=== PATIENT | male | born 1965 | race American Indian/Alaskan Native ===

== ENCOUNTER 2018-04-11 11:35 | Emergency (ER) | payer BC, OTHER ==
[~2018-04-11] VITALS: Ht 188 cm; Wt 190.5 kg
[~2018-04-11 11:35] MED LIST: ASPIRIN325 MG PO; CRESTOR5 MG PO; DICLOFENAC SODI75 MG PO; DILTIAZEM 24HR240 MG PO; HYDROCHLOROTHIA25 MG PO; KLOR-CON 1010 MEQ PO; LOSARTAN POTAS100 MG PO; ZOLPIDEM TARTRA10 MG PO
[2018-04-11] MEDS ORDERED: IBU800 MG PO (12:55)
== END 2018-04-11 13:05 | disposition home or self-care (01) ==
LOC: ED 11:35
DX: I80.02 Phlebitis and thrombophlebitis of superficial vessels of left lower extremity (principal); I10 Essential (primary) hypertension; Z79.899 Other long term (current) drug therapy; Z79.82 Long term (current) use of aspirin
CPT/HCPCS: 93971; 99284

== ENCOUNTER 2019-08-15 14:59 | Emergency (ER) | payer BC, OTHER ==
[~2019-08-15] VITALS: Ht 188 cm; Wt 181.4 kg
--- OUTSIDE RECORDS SUMMARY | ~2019-08-15 | XMS | Clinical Summary ---
Demographics + + + | Address | [address] | | | [place] [address] | + + + | Home Phone | | + + + | Preferred Language | Unknown | + + + | Marital Status | | + + + | Jainism Affiliation | Unknown | + + + | Race | Unknown | + + + | Ethnic Group | Unknown | + + + Author + + + | Author | [facility] | | | and [place] | + + + | Organization | [facility] | | | and [place] | + + + | Address | Unknown | + + + | Phone | Unavailable | + + + Support + + + + + | Name | Relationship | Address | Phone | + + + + + | Waqas,Christa | ECON | [place] | | | | | [phone] | | + + + + + Care Team Providers + +------+ + | Care Academic Support Director Name | Role | Phone | + +------+ + | Eric Paul PA-C | PCP | Unavailable | + +------+ + Allergies No Known Allergies Medications + + + +---------+------+------+-------+ | Medication | Sig | Dispensed | Refills | Star | End | Statu | | | | | | t | Date | s | | | | | | Date | | | + + + +---------+------+------+-------+ | aspirin 325 mg | Take 325 mg by mouth | | 0 | | | Activ | | tablet | Daily. | | | | | e | + + + +---------+------+------+-------+ | | Take 25 mg by mouth | | 0 | | | Activ | | hydrochlorothiazide | Daily. | | | | | e | | 25 mg tablet | | | | | | | + + + +---------+------+------+-------+ | ibuprofen | Take 800 mg by mouth | | 0 | | | Activ | | (ADVIL,MOTRIN) 800 | every 6 hours as | | | | | e | | MG tablet | needed. | | | | | | + + + +---------+------+------+-------+ | naproxen | Take 500 mg by mouth | | 0 | | | Activ | | (NAPROSYN) 500 mg | 2 times daily (with | | | | | e | | tablet | breakfast & | | | | | | | | dinner). | | | | | | + + + +---------+------+------+-------+ | omeprazole | Take 20 mg by mouth | | 0 | | | Activ | | (PRILOSEC) 20 mg | every morning | | | | | e | | capsule | (before breakfast). | | | | | | + + + +---------+------+------+-------+ | UNCODED | Wear while sleeping. | 1 | 0 | 04/2 | | Activ | | MEDICATIONIndication | | Device | | 20 | | e | | s: XIMENA (obstructive | | | | 13 | | | | sleep apnea) | | | | | | | + + + +---------+------+------+-------+ | dilTIAZem (TIAZAC) | Take 180 mg by mouth | | 0 | 01/0 | | Activ | | 180 MG 24 hr | 2 times daily. | | | 20 | | e | | capsule | | | | 18 | | | + + + +---------+------+------+-------+ | losartan (COZAAR) | Take 100 mg by mouth | | 0 | 01/0 | | Activ | | 100 MG tablet | Daily. | | | 420 | | e | | | | | | 18 | | | + + + +---------+------+------+-------+ | KLOR-CON 10 MEQ CR | Take 10 mEq by mouth | | 0 | 01/0 | | Activ | | tablet | 2 times daily. | | | 420 | | e | | | | | | 18 | | | + + + +---------+------+------+-------+ | rosuvastatin | Take 5 mg by mouth | | 0 | 01/0 | | Activ | | (CRESTOR) 5 MG | nightly. | | | 420 | | e | | tablet | | | | 18 | | | + + + +---------+------+------+-------+ | zolpidem (AMBIEN) | Take 10 mg by mouth | | 0 | 01/0 | | Activ | | 10 mg tablet | nightly as needed. | | | 820 | | e | | | | | | 18 | | | + + + +---------+------+------+-------+ | | Take 1-2 tablets by | 40 | 0 | 03/2 | | Activ | | HYDROcodone-acetamin | mouth EVERY 4 TO 6 | tablet | | 0/20 | | e | | ophen (NORCO) 5-325 | HOURS NEEDED for | | | 18 | | | | mg per tablet | Pain. | | | | | | + + + +---------+------+------+-------+ Active Problems + + + | Problem | Noted Date | + + + | XIMENA (obstructive sleep apnea) | | + + + | Obesity | | + + + | HBP (high blood pressure) | | + + + | Chronic pain | | + + + + + | Overview: Shoulder pain | + + Family History + + +------+ + | Medical History | Relation | Name | Comments | + + +------+ + | Heart disease | Mother | | | + + +------+ + | Other (see comment) | Mother | | XIMENA on CPAP | + + +------+ + + +------+--------+ + | Relation | Name | Status | Comments | + +------+--------+ + | Brother | | Alive | | + +------+--------+ + | Father | | Alive | | + +------+--------+ + | Mother | | Alive | | + +------+--------+ + | Sister | | Alive | | + +------+--------+ + | Son | | Alive | | + +------+--------+ + | Son | | Alive | | + +------+--------+ + | Son | | Alive | | + +------+--------+ + Social History + +-------+ +--------+------+ | Tobacco Use | Types | Packs/Day | Years | Date | | | | | Used | | + +-------+ +--------+------+ | Never Smoker | | | | | + +-------+ +--------+------+ + +---+---+---+ | Smokeless Tobacco: | | | | | Never Used | | | | + +---+---+---+ + + +---------+ + | Alcohol Use | Drinks/We | oz/Week | Comments | | | ek | | | + + +---------+ + | Yes | | | Rare | + + +---------+ + + + + | Sex Assigned at | Date Recorded | | | | + + + | Not on file | | + + + + + + + | Job Start Date | Occupation | Industry | + + + + | Not on file | Not on file | Not on file | + + + + + + + + | Travel History | Travel Start | Travel End | + + + + + + | No recent travel history available. | + + Last Filed Vital Signs + + + + | Vital Sign | Reading | Time Taken | + + + + | Blood Pressure | 130/80 | 09/01/20182 PDT | + + + + | Pulse | 78 | 09/01/2018 1322 PDT | + + + + | Temperature | 37.1 C (98.8 F) | 01/18/20188 PDT | + + + + | Respiratory Rate | 20 | 09/01/20181321 PDT | + + + + | Oxygen Saturation | 97% | 09/01/20181321 PDT | + + + + | Inhaled Oxygen | - | - | | Concentration | | | + + + + | Weight | 194 kg (427 lb 11.1 | 09/01/20181321 PDT | | | oz) | | + + + + | Height | 188 cm (6' 2") | 02/24/20188 PDT | + + + + | Body Mass Index | 54.91 | 02/24/2018 1628 PDT | + + + + Plan of Treatment +--------+---------+ + + + | Date | Type | Specialty | Care Team | Description | +--------+---------+ + + + | 09/07/ | Office | Sleep Medicine | Drew Bryant PA | | | 2019 | Visit | | [address] | | | | | | [place] | | | | | | [address] | | | | | | | | +--------+---------+ + + + + + + + + | Health Maintenance | Due Date | Last Done | Comments | + + + + + | Hepatitis C | | | | | Screening | 5 | | | + + + + + | Vaccine: | | | | | Dtap/Tdap/Td (1 - | 4 | | | | Tdap) | | | | + + + + + | Colorectal Cancer | | | | | Screening | 5 | | | | (Colonoscopy) | | | | + + + + + | Vaccine: Zoster (1 | | | | | of 2) | 5 | | | + + + + + | Vaccine: Influenza | | | | | (#1) | 9 | | | + + + + + Results Not on filefrom Last 3 Months Insurance + +--------+ +--------+-------+---------+--------+ | Payer | Benefi | Subscriber | Effect | Phone | Address | Type | | | t Plan | ID | qi | | | | | | / | | Dates | | | | | | Group | | | | | | + +--------+ +--------+-------+---------+--------+ | BCBS | BCBS | [id number] | 11/01/19 | | | PPO | | | [place] | | 16-Pre | | | | | | L FEP | | sent | | | | + +--------+ +--------+-------+---------+--------+ | [employer] | IHS | [id number] | | | | Indemn | | SERVICE | YELLOW | | 013-Pr | | | ity | | | HAWK | | esent | | | | + +--------+ +--------+-------+---------+--------+ + +--------+ +--------+ + + | Guarantor Name | Accoun | Relation to | Date | Phone | Billing Address | | | t Type | Patient | of | | | | | | | | | | + +--------+ +--------+ + + | Sid Morin | Person | Self | [birth year] | [address] | | | al/Fam | | 1965 | [phone] | [address] [place] | | | [place] | | | 0 (Home) | [phone] | | | | | | [phone] | | | | | | | 4 (Work) | | + +--------+ +--------+ + + Advance Directives Patient has advance care planning documents, and code status on file. For more information, please contact:[facility] and [place] [address] + + + + + | Code Status | Date | Date | Comments | | | Activated | Inactivated | | + + + + + | Full Code | 01/18/2018 | 01/18/2018 | | | | 14:52 | 17:14 | | + + + + +
--- OUTSIDE RECORDS SUMMARY | ~2019-08-15 | XMS | Clinical Summary ---
Demographics + + + | Address | [address] | | | [place] [address] | + + + | Home Phone | | + + + | Preferred Language | Unknown | + + + | Marital Status | | + + + | Uatsdin Affiliation | Unknown | + + + | Race | Unknown | + + + | Ethnic Group | Unknown | + + + Author + + + | Author | [facility] | | | and [place] | + + + | Organization | [facility] | | | and [place] | + + + | Address | Unknown | + + + | Phone | Unavailable | + + + Support + + + + + | Name | Relationship | Address | Phone | + + + + + | Waqas,Christa | ECON | [place] | | | | | [address] | | + + + + + Care Team Providers + +------+ + | Care Home Inspector Name | Role | Phone | + [...] [place] | | | | | | [phone] | | | | | | | [...] +--------+ +--------+-------+---------+--------+ | BCBS | BCBS | [id number] | 11/01/19 | | | PPO | | | [place]ERA | | 16-Pre | | | | | | L FEP | | sent | | | | + +--------+ +--------+-------+---------+--------+ | [employer] | IHS | [id number] | | | | Indemn | | [...] Person | Self | [birth year] | [address] | | | al/Fam | | 1965 | [phone] | loop [place] | | | [place] | | | 0 (Home) | [phone] | | | | | | [phone] | | | | | | | 4 (Work) | | + +--------+ +--------+ + + Advance Directives Patient has advance care planning documents, and code status on file. For more information, please contact:[facility] [place] [address] + + + + + | Code Status | Date | Date | Comments | | | Activated | Inactivated | | + + + + + | Full Code | 01/18/2018 | 01/18/2018 | | | | 14:52 | 17:14 | | + + + + +
[~2019-08-15 14:59] MED LIST changes: +IBU800 MG PO
--- OUTSIDE RECORDS SUMMARY | 2019-08-15 15:02 | XMS ---
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 ESonya VISIT COUNT (12 MO.) 1 STEPHANIE El TOTAL 1 NOTE: Visits indicate total known visits. ED/UCC VISIT TRACKING (12 MO.) 08/15/2019 15:00 STE[facility]IE [facility] [place] TYPE: Emergency COMPLAINT: - BACK AND SHOULDER PAIN INPATIENT VISIT TRACKING (12 MO.) No inpatient visits to display in this time frame [id number]
[2019-08-15] MEDS ORDERED: NORCO 7.5-3251 EACH PO (15:10)
[2019-08-15] MEDS ORDERED: PREDNISONE10 MG PO (15:11)
[2019-08-15] MEDS ORDERED: CYCLOBENZAPRINE10 MG PO (15:11)
[2019-08-15] MEDS ORDERED: ULTRAM50 MG PO (15:11)
[2019-08-15] MEDS ORDERED: PERCOCET 5-3251 EACH PO (18:25)
== END 2019-08-15 18:44 | disposition home or self-care (01) ==
LOC: ED 14:59
DX: M48.02 Spinal stenosis, cervical region (principal); M54.12 Radiculopathy, cervical region; I10 Essential (primary) hypertension; Z86.73 Personal history of transient ischemic attack (TIA), and cerebral infarction without residual deficits; Z88.8 Allergy status to other drugs, medicaments and biological substances; Z79.52 Long term (current) use of systemic steroids; Z79.82 Long term (current) use of aspirin; Z79.899 Other long term (current) drug therapy
CPT/HCPCS: 72125; 96372; 99283-25; J1100; J1170

== ENCOUNTER 2020-03-27 07:50 | Day surgery (SDC) | payer BC, OTHER ==
[~2020-03-27] VITALS: Ht 188 cm; Wt 195.0 kg
[~2020-03-27 07:50] MED LIST changes: +CELEBREX200 MG PO; +CYCLOBENZAPRINE10 MG PO; +NORCO 7.5-3251 EACH PO; +PERCOCET 5-3251 EACH PO; +PREDNISONE10 MG PO; +ST. JOSEPH ASPI81 MG PO; +ULTRAM50 MG PO; +VITAMIN D3125 MC1 PO
--- NOTE | 2020-03-27 08:27 | NUR ---
PT ALERT, ORIENTED AND SITTING IN CHAIR. PT SEEMS AT EASE, VIEWS CYST ON HIS FINGER MORE AN ANNOYANCE, AND SEEMS READY TO HAVE IT TAKEN CARE OF. PT HAD FEW QUESTIONS-ASKED AND ANSWERED. PT DID REQUEST PRAYER
[2020-03-27] MEDS ORDERED: HYDROCODON-ACE1 EA10 PO (09:39)
--- NOTE | 2020-03-27 09:51 | OR ---
[facility] [address] [place], [place] [address] Signed DATE OF OPERATION: 03/27/2020 SURGEON: Bryant Soler MD PREOPERATIVE DIAGNOSIS: Left ring finger cyst, dorsal. POSTOPERATIVE DIAGNOSIS: Left ring finger cyst, dorsal. PROCEDURE PERFORMED: Excision of mass, left ring finger. MANAGER ASSISTED LIVING: None. ANESTHESIA: [place] block. TOURNIQUET TIME: 20 minutes. SPECIMENS: The cystic mass was sent to Pathology. BRIEF HISTORY: Sid is a 54-year-old gentleman with a history of a painful bump on the back of his left ring finger. This did not change in size, however, it was bothersome to him and he wished to have it removed. Risks and benefits of operative removal were discussed with him and he elected to proceed. DESCRIPTION OF PROCEDURE: Once consent was obtained, he was taken to the operating room. After establishment of Afsaneh block, the hand was prepped and draped in a standard sterile fashion. The cyst was easily identifiable. A 1 cm incision was made overlying this. It was immediately below the skin and deep blue in color. Initially, I thought it may be a venous aneurysm or blood clot; however, dissection around it showed it to be completely free of any attachment to surrounding vessels or tissue. It was easily removed. Due to it not being a typical epidermal inclusion cyst or foreign body cyst, I went ahead and sent it to Pathology. There were 2 small bleeders were then cauterized using the bipolar. Electronically Signed By: BRYANT SOLER MD 03/27/20 0951 PATIENT NAME: SID FOSTER OPERATIVE REPORT DATE OF : 65 REPORT #: [id number] PHYSICIAN: BRYANT SOLER MD PCP: INESSA COLEMAN REPORT IS CONFIDENTIAL AND NOT TO BE RELEASED WITHOUT AUTHORIZATION [facility] [address] [place], [place] [address] Signed Wound was copiously irrigated and closed using 3-0 nylon. We injected 5 mL of 0.25% plain Marcaine at the end of the procedure. The wound was dressed with bacitracin, Adaptic, 4 x 4 and gauze. He tolerated the procedure well. All sponge, needle, and instrument counts were correct. Bryant Soler MD BA/HERMESL /[id number] Copies: ~ Electronically Signed By: BRYANT SOLER MD 03/27/20 0951 PATIENT NAME: SID FOSTER OPERATIVE REPORT DATE OF : 65 REPORT #: [id number] PHYSICIAN: BRYANT SOLER MD PCP: INESSA COLEMAN REPORT IS CONFIDENTIAL AND NOT TO BE RELEASED WITHOUT AUTHORIZATION
--- NOTE | 2020-03-27 10:24 | NUR ---
03/27/20 1024 Irina Freedman 0966 PT ARRIVED IN PACU WIDE AWAKE WITH NO C/O'S. 0950 ICE TO L HAND AND ELEVATED. 1000 UP TO BATHROOM. VOIDED. BACK AT BEDSIDE GETTING DRESSED. 1012 DC INSTRUCTIONS GIVEN. ALL QUESTIONS ANSWERED. LEFT VIA W/C.
--- NOTE | 2020-03-29 14:04 | PATH ---
[facility] [address] [place], [place] [address] Signed SPECIMEN(S): A LEFT RING FINGER SPECIMEN SOURCE: A. 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 NAL:cml:C2NR MICROSCOPIC EXAMINATION: Histologic sections of all submitted blocks are examined by light microscopy. These findings, together with the gross examination, support the pathologic diagnosis. GROSS DESCRIPTION: The specimen, labeled "SB," and designated on the requisition "cyst, left ring finger," is received in formalin and consists of a dark riley/blue tissue nodule measuring 0.7 x 0.5 x 0.3 cm. The specimen is bisected revealing hemorrhagic cut surface and is entirely submitted in cassette A1. AT (under the direct supervision of a pathologist) The Gross Description was prepared using a voice recognition system. The report was reviewed for accuracy; however, sound-alike word errors, addition and/or deletions may occur. If there is any question about this report, please contact Client Services. PERFORMING LABORATORY: The technical component was performed by [facility], [address] [place] [address] (Machine Burrer: Halina Frias MD; CLIA# [id number]). [facility], [address] [address] (CLIA# [id number]). Diagnostician: Teresa Deleon MD Pathologist Electronically Signed 03/29/2020 PATIENT NAME: CARYL FOSTER PATHOLOGY DATE OF : 65 REPORT #: [id number] PHYSICIAN: RANI JAMES PCP: INESSA COLEMAN REPORT IS CONFIDENTIAL AND NOT TO BE RELEASED WITHOUT AUTHORIZATION [address] [address] Signed Copies: ~ PATIENT NAME: CARYL FOSTER PATHOLOGY DATE OF : 65 REPORT #: [id number] PHYSICIAN: RANI PATHOLOGY PCP: INESSA COLEMAN REPORT IS CONFIDENTIAL AND NOT TO BE RELEASED WITHOUT AUTHORIZATION
== END 2020-03-27 10:12 | disposition home or self-care (01) ==
LOC: OPS 07:50 → DS 07:50 → OPS 09:45
PROVIDERS: Specialist
PROC: 0JBK0ZZ Excision of Left Hand Subcutaneous Tissue and Fascia, Open Approach (ICD-10-PCS; principal; 2020-03-27 09:45)
DX: M67.442 Ganglion, left hand (principal); I10 Essential (primary) hypertension; K21.9 Gastro-esophageal reflux disease without esophagitis; Z79.899 Other long term (current) drug therapy
CPT/HCPCS: 01830; J0690; J2704

== ENCOUNTER 2021-01-03 10:39 | Observation (INO) | payer BC, OTHER ==
[~2021-01-03] VITALS: Ht 188 cm; Wt 199.6 kg
[~2021-01-03 10:39] MED LIST changes: -DILTIAZEM 24HR240 MG PO; +DILTIAZEM ER240 M1 PO; +HYDROCODON-ACE1 EA10 PO
[2021-01-03] MEDS ORDERED: VITAMIN C500 M5 PO (10:59)
[2021-01-03] MEDS ORDERED: GABAPENTIN300 MG PO (11:00)
[2021-01-03] MEDS ORDERED: ASPIRIN EC325 MG PO (14:37)
[2021-01-03] MEDS ORDERED: PROPRANOLOL HCL20 MG PO (14:50)
[2021-01-03] MEDS ORDERED: FLUTICASONE PRO16 GM NAS (14:50)
[2021-01-03] MEDS ORDERED: CLOTRIMAZOLE-BE15 GM TOP (14:51)
--- NOTE | 2021-01-03 15:13 | EKG ---
[facility] [address] [facility] [place], [place] [address] Signed Normal sinus rhythm Nonspecific ST abnormality Abnormal ECG When compared with ECG of 26-MAR-2020 14:30, ST now depressed in Anterior leads Confirmed by KACEY MEDINA MD ([id number]) on 01/03/2021 3:12:49 PM Electronically Signed By: KACEY MEDINA MD 01/03/21 1513 PATIENT NAME: KRISTINCARYL ANDERMARYBETH Electrocardiogram DATE OF : 65 PHYSICIAN: KACEY MEDINA MD REPORT #: [id number] REPORT IS CONFIDENTIAL AND NOT TO BE RELEASED WITHOUT AUTHORIZATION
--- NOTE | 2021-01-03 17:02 | NUR ---
PT BROUGHT DOWN FROM ED VIA STRETCHER AWAKE AND ALERT WITH GIRLFRIEND AND BELONGINGS. PT REPORTS NO SOB AT THIS TIME AND STATES IT ONLY HAPPENS WHEN GETTING UP. PT ON ROOM AIR AT THIS TIME AND DENIES ANY PAIN. PT ABLE TO WALK OVER TO BATHROOM WITHOUT ASSISTANCE TO URINATE AND GET BACK INTO BED WITHOUT ASSISTANCE. ADMISSION COMPLETE, AT THIS TIME, PT REPORTS NO FURTHER NEEDS, PT'S GIRLFRIEND IN ROOM WITH HIM, PT ORDERING DINNER AT THIS TIME. ORDERED MEDICATIONS ADMINISTERED, CALL LIGHT IN REACH, BED IN LOWEST POSITION, WILL CONTINUE PLAN OF CARE.
--- NOTE | 2021-01-03 18:10 | NUR ---
THIS RN IN TO ASSESS PT. PT HAD JUST GOTTEN BACK FROM BATHROOM AND VOIDED. PT REPORTS NO SOB AT THIS TIME AND IS NOW LAYING IN BED AWAKE AND ALERT. PT REPORTS NO FURTHER NEEDS AT THIS TIME AND IS WAITING FOR HIS DINNER, WILL CONTINUE PLAN OF CARE. CALL LIGHT IN REACH, BED IN LOWEST POSITION. PT IN BED WATCHING TV IN BED.
--- NOTE | 2021-01-03 19:45 | NUR ---
REPORT RECEIVED FROM DAY SHIFT RN. IN TO CHECK ON PT, PT HAS EATEN ALL OF HIS DINNER AND HAS NO COMPLAINTS OR REQUSTS AT THIS TIME. SITTING IN BED WATCHING TV, HR 50'S.
--- NOTE | 2021-01-03 20:15 | NUR ---
HAS BROUGHT PT'S CPAP FROM HOME. RT IS ON THE WAY TO COME AND CHECK IT OUT.
--- NOTE | 2021-01-03 21:00 | NUR ---
IN TO DO PT ASSESSMENT AND GIVE HS MEDS. PT IS SITTING UP IN BED WATCHING TV WITH IN ROOM. RESTING HR IN 50'S. PT ON ROOM AIR, DENIES SOB AT THIS TIME, RESP EVEN AND UNLABORED AND LUNGS CLEAR. PT REPORTS FEELING SOB WITH AMBULATION ONLY. EDUCATION DONE REGARDING NEW MEDICATION ELIQUIS WELL ON PE'S PT AND ASKING MANY QUESTIONS.
--- NOTE | 2021-01-03 21:45 | NUR ---
PT CALLS TO REPORT THAT HE FEELS A BIT NAUSEAUS, THEN CLARIFIES AND STATES HE IS ACTUALLY DIZZY THAT HE OFTEN GETS THOSE TWO TERMS MIXED UP. REPORTS THAT HE FEELS A LITTLE DIZZY AND REQUESTS A SNACK THINKING THAT MIGHT MAKE HIM FEEL BETTER. SANDWICH BOX BROUGHT TO PT AND PT DOES REPORT FEELING BETTER AFTERWARDS. HR REMAINS STEADY 50'S SINUS BRADYCARDIA, DENIES SOB.
--- NOTE | 2021-01-03 23:45 | NUR ---
PT ABOUT READY TO PUT HIS CPAP ON AND GO TO SLEEP FOR THE NIGHT, WILL SPEND THE NIGHT. ASSESSMENT DONE, UNCHANGED FROM PREVIOUS. RESTING HR 54. PT DENIES DIZZINESS AT THIS TIME.
--- NOTE | 2021-01-04 02:00 | NUR ---
PT SLEEPING WITH CPAP IN PLACE, SPO2 DIPPING TO 90-92% AT TIMES. RESP EVEN AND UNLABORED, HR REMAINS 50'S.
--- NOTE | 2021-01-04 04:30 | NUR ---
PT CONT TO SLEEP WITH CPAP IN PLACE, HR 50'S.
--- NOTE | 2021-01-04 05:15 | NUR ---
IN TO CHECK ON PT, DO ASSESSMENT. DENIES NEEDS AT THIS TIME.
--- NOTE | 2021-01-04 06:00 | NUR ---
PT UP DOING AM CARE, STATES THAT HE HAS BEEN FEELING A BIT DIZZY SITTING UP IN BED BUT ONCE HE IS UP FOR A WHILE DIZZINESS GOES AWAY.
--- NOTE | 2021-01-04 06:49 | NUR ---
LAB IN TO DRAW
--- NOTE | 2021-01-04 08:00 | NUR ---
THIS RN IN TO ASSESS PT AND ADMINISTER ORDERED MEDICATIONS. PT BREAKFAST GRAYSON ALONG WITH MEDICATIONS AT THIS TIME. PT SITTING IN BEDSIDE CHAIR WATCHING TV ALERT AND ORIENTED. ORDERED MEDICATIONS ADMINISTERED AT THIS TIME. PT HAS NO COMPLAINTS OF PAIN OR SOB WHEN ASKED AND IS ON ROOM AIR WITH AN SPO2 OF 96%. PT REPORTS NO FURTHER NEEDS AT THIS TIME AND IS EATING BREAKFAST WITH HIS AT THE BEDSIDE. WILL CONTINUE PLAN OF CARE.
--- NOTE | 2021-01-04 09:20 | NUR ---
DR. MEDINA IN ROOM TO ASSESS PT AND UPDATE ON PLAN OF CARE. PT REPORTS NO FURTHER NEEDS AT THIS TIME, WILL CONTINUE PLAN OF CARE. PT SITTING AT BEDSIDE CHAIR WITH AT SIDE.
[2021-01-04] MEDS ORDERED: ELIQUIS5 MG PO ×2 (09:40→10:39)
[2021-01-04] MEDS ORDERED: HYDROCODON-ACE1 EA10 PO (09:41)
--- NOTE | 2021-01-04 09:50 | NUR ---
RESPONDED TO PT CALL LIGHT. PT STATED HE WAS HAVING DIFFICULTY HAVING A BOWEL MOVEMENT AND WANTED A STOOL SOFTNER. DR. MEDINA NOTIFIED IN PERSON, NEW ORDERS FOR SENNOKOT AND MIRALAX. WILL CONTINUE PLAN OF CARE.
--- NOTE | 2021-01-04 10:22 | NUR ---
THIS RN IN TO CHECK ON PT. PT STATED HE WAS WILLING TO TRY AND WALK DOWN THE HALLWAY. PT. ABLE TO DO 3 LAPS BACK IN FORTH DOWN THE CCU WHIPPLE AT A STEADY PACE. PT WAS ABLE TO COMPLETE THEM WITHOUT STOPPING AND DENIED PAIN OR DIZZINESS. PT DID STATE HE FELT SOB. PT SPO2 MAINTAINED AT ABOUT 91%, LOWEST SPO2 WAS 88%. PT WAS ABLE TO RECOVER QUICKLY AFTER RESTING AND IS NOW BACK TO 95% SPO2 ON ROOM AIR. PT REPORTS NO FURTHER NEEDS AT THIS TIME, WILL CONTINUE PLAN OF CARE. PT NOW SITTING IN BEDSIDE CHAIR WATCHING TV. CALL LIGHT WITHIN REACH.
--- NOTE | 2021-01-04 10:30 | NUR ---
DR. MEDINA UPDATED ON PATIENT REGARDING HIS WALK DOWN THE HALLS AND HOW HE DID. WILL CONTINUE PLAN TO DISCHARGE PER MD. ORDERS. PT SITTING IN BEDSIDE CHAIR AT THIS TIME, SPO2 96%, PT REPORTS NO SOB AT THIS TIME. WILL CONTINUE PLAN OF CARE.
--- NOTE | 2021-01-04 10:51 | NUR ---
This pharmacist dispensed Eliquis 5mg #24 tablets, two tablets BID x 6 more days. [facility]
--- NOTE | 2021-01-04 12:15 | NUR ---
THIS RN IN TO ASSESS PT AND TAKE VITALS. PT REPORTS NO SOB OR PAIN AT THIS TIME AND IS ALERT AND ORIENTED SITTING IN THE BEDSIDE CHAIR. SPO2 AT 95% WHILE RESTING ON ROOM AIR. PT UPDATED ON PLAN OF CARE, QUESTIONS ANSWERED ABOUT DISCHARGE AND INFORMATION PROVIDED. PHARMACIST NOW IN ROOM GOING OVER MEDICATIONS WITH PT. PT REPORTS NO FURTHER NEEDS AT THIS TIME, WILL CONTINUE PLAN OF CARE. CALL LIGHT IN REACH, GIRLFRIEND IN ROOM WITH PT.
--- NOTE | 2021-01-04 12:20 | NUR ---
THIS RN IN TO DC P
--- NOTE | 2021-01-04 13:32 | NUR ---
PT DC'D AT AROUND 1320. PT ALERT AND ORIENTED AND WAS TAKEN DOWN TO LOBBY VIA WHEELCHAIR WITH GIRLFRIEND. PT ABLE TO GET UP AND INTO CAR WITHOUT ASSISTANCE. BELONGINGS TAKEN WITH THEM INCLUDING HOME CPAP.
== END 2021-01-04 13:20 | disposition home or self-care (01) ==
LOC: ED 10:39 → CCU 10:40
PROVIDERS: ADMIT Internal Medicine; ATTEND Internal Medicine
DX: I26.99 Other pulmonary embolism without acute cor pulmonale (principal); R09.02 Hypoxemia; I10 Essential (primary) hypertension; D68.51 Activated protein C resistance; G47.33 Obstructive sleep apnea (adult) (pediatric); E66.9 Obesity, unspecified; Z68.43 Body mass index [BMI] 50.0-59.9, adult; Z86.73 Personal history of transient ischemic attack (TIA), and cerebral infarction without residual deficits; Z86.718 Personal history of other venous thrombosis and embolism; Z79.01 Long term (current) use of anticoagulants; Z20.822 Contact with and (suspected) exposure to COVID-19
CPT/HCPCS: 71045; 71260; 93005; 93010; C9803; J1650; Q9967